=== PATIENT | male | born 1995 | race Caucasian/White ===

== ENCOUNTER 2018-10-28 18:12 | Emergency (ER) | payer OTHER, SELFPAY ==
[2018-10-28 18:17] VITALS: BP 119/65; PULSE 83; RESP 14; TEMP 36.5; O2SAT 98; BMI 22.7
--- NOTE | 2018-10-28 18:31 | ED_ITS ---
HPI - Skin/Abscess/Foreign Bdy <Miriam Rod PA-C - Last Filed: 10/28/18 21:54> General Chief complaint: Skin/Abscess/Foreign Body Stated complaint: LT THUMB CUT Time Seen by Provider: 10/28/18 18:38 Source: patient Mode of arrival: ambulatory Limitations: no limitations History of Present Illness HPI narrative: This 22 y.o. R. handed male cut his left thumb with a knife when opening a box at work. He states that he cleaned it and applied pressure right away and has stopped bleeding. He states a little bit tender if palpated, otherwise no pain. He does not have any difficulty moving the thumb, denies any weakness or paresthesia. He states that it is been more than 5 years , maybe 10, since his last tetanus vaccine. He denies any other complaints or injury Related Data Home Medications Medication Instructions Recorded Confirmed No Known Home Medications 10/28/18 10/28/18 Allergies Allergy/AdvReac Type Severity Reaction Status Date / Time No Known Drug Allergies Allergy Verified 10/28/18 18:19 Review of Systems <Miriam Rod PA-C - Last Filed: 10/28/18 21:54> Review of Systems All systems reviewed & are unremarkable except as noted in HPI and below PFSH <Miriam Rod PA-C - Last Filed: 10/28/18 21:54> Comment: no etoh, + THC Exam <Miriam Rod PA-C - Last Filed: 10/28/18 21:54> Narrative Exam Narrative: GENERAL APPEARANCE: Patient sitting comfortably, in no distress. LUNGS: Clear to auscultation bilaterally. HEART: Rate and rhythm regular without murmur, normal S1 and S2, no S3 or S4. DERMATOLOGIC: left mid lateral thumb pad there is a 1 cm long laceration that is not actively bleeding. No more than 2 mm in depth. There is no gap between the wound borders MUSCULOSKELETAL: Full range of motion of the left thumb, strength is intact against resistance in all gonzalez NEUROVASCULAR: Left thumb warm and pink with brisk cap refill, sensation grossly intact Initial Vital Signs Initial Vital Signs: Vital Signs Temperature 97.7 F 10/28/18 18:17 Pulse Rate 83 10/28/18 18:17 Respiratory Rate 14 10/28/18 18:17 Blood Pressure 119/65 10/28/18 18:17 Pulse Oximetry 98 10/28/18 18:17 <DO Bety Patton Last Filed: 10/29/18 00:02> Initial Vital Signs Initial Vital Signs: Vital Signs Temperature 97.7 F 10/28/18 18:17 Pulse Rate 83 10/28/18 18:17 Respiratory Rate 14 10/28/18 18:17 Blood Pressure 119/65 10/28/18 18:17 Pulse Oximetry 98 10/28/18 18:17 Procedures <Miriam Rod PA-C - Last Filed: 10/28/18 21:54> Laceration Repair Laceration 1: Site: hand (thumb pad) Side (If applicable): left Size (cm): 1 Description: linear Depth: simple, single layer (repaired with dermabond) Pre-repair: wound explored, irrigated extensively and deep structures intact Number of sutures: 0 Course <NASIR Child Last Filed: 10/28/18 21:54> Orders Ordered: Discontinued Medications Diphtheria/Tetanus/Acell Pertussis (Adacel) 0.5 ml IM .ONCE ONE Stop: 10/28/18 18:55 Last Admin: 10/28/18 18:58 Dose: 0.5 ml Tetanus/Diphtheria Toxoids (Td) 0.5 ml IM .ONCE ONE Stop: 10/28/18 18:45 Last Admin: 10/28/18 18:54 Dose: Vital Signs - 8 hr 10/28/18 18:17 10/28/18 19:52 Temperature 97.7 F Pulse Rate 83 71 Respiratory Rate 14 16 Blood Pressure 119/65 121/64 Pulse Oximetry 98 100 <DO Bety Patton Last Filed: 10/29/18 00:02> Orders Ordered: Discontinued Medications Diphtheria/Tetanus/Acell Pertussis (Adacel) 0.5 ml IM .ONCE ONE Stop: 10/28/18 18:55 Last Admin: 10/28/18 18:58 Dose: 0.5 ml Tetanus/Diphtheria Toxoids (Td) 0.5 ml IM .ONCE ONE Stop: 10/28/18 18:45 Last Admin: 10/28/18 18:54 Dose: Vital Signs - 8 hr 10/28/18 18:17 10/28/18 19:52 Temperature 97.7 F Pulse Rate 83 71 Respiratory Rate 14 16 Blood Pressure 119/65 121/64 Pulse Oximetry 98 100 Discharge Plan Departure Patient Disposition: Home Clinical Impression: Laceration of left thumb Discharge Date/Time: 10/28/18 19:55 Interventions: ED Discharge Assessment Last Done: 10/28/18 19:52 Instructions: DI for Laceration Repair With Dermabond Activity Restrictions/Additional Instructions: Please keep the splint on at all times until this wound has healed, about 5-7 days. monitor for any signs of infection such as redness, draining pus, swelling, increased pain or fever and return to ED or urgent care if any. Otherwise once this is closed you can stop wearing the splint and resume your usual activities. It is okay to work while you are wearing the splint as long as you keep the wound clean and dry Prescriptions: No Action No Known Home Medications RF: 0 <Laith Denton DO - Last Filed: 10/29/18 00:02> [facility] Attending Delvis Attestation: I was available for consultation during this patient's emergency department encounter
[2018-10-28] MEDS: TET,DIPH,PERTUSS(ACELL),VAC/PF 0.5 ML SYRINGE IM (18:58)
[2018-10-28 19:52] VITALS: BP 121/64; PULSE 71; RESP 16; O2SAT 100
== END 2018-10-28 19:55 | disposition home or self-care (01) ==
PROVIDERS: Emergency Provider Internal Medicine
DX: S61.012A Laceration without foreign body of left thumb without damage to nail, initial encounter (principal); W26.0XXA Contact with knife, initial encounter; Y99.0 Civilian activity done for income or pay
CPT/HCPCS: 29130; 90471; 99283; 90715